=== PATIENT | male | born 1960 | race Caucasian/White ===

== ENCOUNTER 2018-11-14 00:27 | Inpatient (IN) | payer MEDICARE, OTHER | END 2018-11-15 10:35 | disposition home or self-care (01) | LOC: ER 00:27 → PCU 3S 01:40 | PROC: 4A023N7 Measurement of Cardiac Sampling and Pressure, Left Heart, Percutaneous Approach (ICD-10-PCS; principal; ~2018-11-14) | PROC: 027034Z Dilation of Coronary Artery, One Artery with Drug-eluting Intraluminal Device, Percutaneous Approach (ICD-10-PCS; ~2018-11-14) | DX: I21.3 ST elevation (STEMI) myocardial infarction of unspecified site (principal) ==